=== PATIENT | male | born 1960 | race Caucasian/White ===

== ENCOUNTER → 2018-02-21 | Outpatient (CLI) | payer MEDICARE | END | disposition home or self-care (01) | LOC: OIH 14:56 | PROVIDERS: ATTEND Internal Medicine | DX: S63.250A Unspecified dislocation of right index finger, initial encounter (principal); M13.841 Other specified arthritis, right hand; M20.001 Unspecified deformity of right finger(s); X58.XXXA Exposure to other specified factors, initial encounter; Y93.89 Activity, other specified; Y92.89 Other specified places as the place of occurrence of the external cause; Y99.8 Other external cause status | CPT/HCPCS: 73140 ==

== ENCOUNTER → 2019-07-08 | Outpatient (CLI) | payer MEDICARE | END | disposition home or self-care (01) | LOC: RAH 10:49 | PROVIDERS: ATTEND Internal Medicine Gastroenterology | DX: K31.84 Gastroparesis (principal) | CPT/HCPCS: 78264; A9541 ==